=== PATIENT | female | born 1955 | race Caucasian/White ===

== ENCOUNTER 2016-05-10 21:01 | Emergency (ER) | payer OTHER ==
[~2016-05-10] VITALS: Ht 175.3 cm; Wt 88.2 kg
[~2016-05-10 21:01] MED LIST: BENTYL20 MG PO; CLEOCIN300 MG PO; DOXYCYCLINE HY100 M3 PO; FLONASE16 G1 BOTH NARES; GLIPIZIDE XL5 MG PO; GLUCOPHAGE500 MG; GLUCOPHAGE500 MG PO; GLUCOTROL XL5 MG PO; GLUCOTROL5 MG PO; LEVOTHROID100 MCG PO; LEVOTHYROXINE100 MCG PO; LISINOPRIL40 MG PO; MYSOLINE50 MG PO; NEURONTIN300 MG PO; PERCOCET 5/31 TABLET PO; PRILOSEC20 MG PO; PRIMIDONE50 MG PO; PROMETHAZINE HC25 M1 PO; REMERON45 MG PO; SINEMET 25-1001 EACH PO; SINEMET 25-2501 EAC1 PO; TESSALON PERLE100 MG PO; TIROSINT100 MCG PO; TYLENOL WITH C1 EACH PO; ZESTRIL40 MG PO; ZOCOR80 MG PO; ZOFRAN4 MG PO
[2016-05-11 01:23] VITALS: BP 144/72
== END 2016-05-11 01:24 | disposition home or self-care (01) ==
LOC: EME 21:01 → EXP 21:01
DX: S00.12XA Contusion of left eyelid and periocular area, initial encounter (principal); W20.8XXA Other cause of strike by thrown, projected or falling object, initial encounter
CPT/HCPCS: 99281; 99284

== ENCOUNTER 2016-06-13 14:01 | Emergency (ER) | payer OTHER ==
[~2016-06-13] VITALS: Ht 175.3 cm; Wt 88.1 kg
[2016-06-13 14:43] LABS: MCH 28.3 PG (29.0-34.0); MCHC 33.2 G/DL (30.0-36.0); MCV 85.2 FL (83-99); MEAN PLAT.VOLUME 11.2 uM^3 (9.5-12.4); PLATELET COUNT 185 K/uL (156-360); RBC DIS.WIDTH-CV 12.7 % (11.8-14.6); RBC DIS.WIDTH-SD 38.7 % (39-53); RED BLOOD COUNT 4.81 M/uL (3.80-5.20)
[2016-06-13 14:51] LABS: CHLORIDE 107 mEq/L (99-109); POTASSIUM 4.1 mEq/L (3.7-5.4); SODIUM 141 mEq/L (136-147)
[2016-06-13 14:53] LABS: GLUCOSE 162 mg/dL (70-99)
[2016-06-13 14:54] LABS: ANION GAP 11 MEQ/L (2-14)
[2016-06-13 14:55] LABS: TOTAL BILIRUBIN 0.6 mg/dL (0.0-1.0)
[2016-06-13 14:57] LABS: ALKALINE PHOSPHATASE 78 IU/L (3-129); GFR ESTIMATE (CALCULATED) > 59 mL/min/
[2016-06-13 14:58] LABS: UREA NITROGEN (BUN) 22 mg/dL (9-23)
[2016-06-13 15:00] LABS: LIPASE 11 U/L (1.0-51.0)
[2016-06-13 15:41] LABS: ADD MIUA? YES; BILIRUBIN NEGATIVE; BLOOD NEGATIVE; COLOR YELLOW ((YELLOW)); GLUCOSE (STRIP) NEGATIVE; KETONES 5; LEUKOCYTES SMALL; NITRITE NEGATIVE; PROTEIN (STRIP) NEGATIVE; SPECIFIC GRAVITY 1.027 (1.000-1.030); UROBILINOGEN 0.2 MG/DL (0.2-1.0)
[2016-06-13 15:54] LABS: BACTERIA RARE /HPF; EPITHELIAL CELLS RARE /HPF; MUCUS TRACE /LPF; RED BLOOD CELLS 30-40 /HPF (0-5); UCUL ADDED? NO; WHITE BLOOD CELLS 0-5 /HPF (0-5)
[2016-06-13 16:04] LABS: POINT-OF-CARE METER ID UU13113702; POINT-OF-CARE USER ID AHSDISBJH
[2016-06-13] MEDS ORDERED: ZOFRAN4 MG PO (18:30)
[2016-06-13] MEDS ORDERED: MACRODANTIN100 MG PO (18:30)
[2016-06-13 19:48] VITALS: BP 144/80
== END 2016-06-13 19:54 | disposition home or self-care (01) ==
LOC: EME 14:01
PROVIDERS: Emergency Medicine
DX: R11.2 Nausea with vomiting, unspecified (principal); R19.7 Diarrhea, unspecified; R10.9 Unspecified abdominal pain
CPT/HCPCS: 74177; 80053; 81003; 82948; 83605; 83690; 85027; 99281; 99285; J2405; J7030

== ENCOUNTER 2016-11-06 16:02 | Emergency (ER) | payer OTHER ==
[~2016-11-06] VITALS: Ht 170.2 cm; Wt 93.8 kg
[~2016-11-06 16:02] MED LIST changes: +MACRODANTIN100 MG PO
[2016-11-06] MEDS ORDERED: ZANTAC150 MG PO (17:19)
[2016-11-06 17:43] LABS: BASOPHIL COUNT 0.1 K/uL (0-0.1); EOSINOPHIL (%) 1.2 % (0-5); EOSINOPHIL COUNT 0.1 K/uL (0-0.3); HEMATOCRIT 37.4 % (36.0-46.0); IMMATURE GRANULOCYTE (%) 0.3 % (0.0-0.7); INSTRUMENT ABS NEUTROPHIL CT 4.5 K/uL; LYMPHOCYTE COUNT 2.5 K/uL (1.0-2.8); MCH 28.2 PG (29.0-34.0); MCHC 33.2 G/DL (30.0-36.0); MEAN PLAT.VOLUME 11.1 uM^3 (9.5-12.4); MONOCYTE (%) 6.4 % (3-12); MONOCYTE COUNT 0.5 K/uL (0-0.8); NEUTROPHIL (%) 59.1 % (45-76); NEUTROPHIL COUNT 4.5 K/uL (1.8-6.4); PLATELET COUNT 193 K/uL (156-360); RBC DIS.WIDTH-CV 11.9 % (11.8-14.6); RBC DIS.WIDTH-SD 37.1 % (39-53); WHITE BLOOD COUNT 7.6 K/uL (4.1-10.2)
[2016-11-06 17:57] LABS: CHLORIDE 103 mEq/L (99-109); POTASSIUM 4.1 mEq/L (3.7-5.4); SODIUM 137 mEq/L (136-147)
[2016-11-06 17:59] LABS: GLUCOSE 115 mg/dL (70-99)
[2016-11-06 18:00] LABS: ANION GAP 12 MEQ/L (2-14)
[2016-11-06 18:01] LABS: TOTAL BILIRUBIN 0.2 mg/dL (0.0-1.0)
[2016-11-06 18:02] LABS: ALKALINE PHOSPHATASE 71 IU/L (3-129)
[2016-11-06 18:03] LABS: GFR ESTIMATE (CALCULATED) > 59 mL/min/
[2016-11-06 18:04] LABS: UREA NITROGEN (BUN) 18 mg/dL (9-23)
[2016-11-06 18:06] LABS: CREATINE KINASE 97 IU/L (1-294); TOTAL CK 97 IU/L (1-294)
[2016-11-06 18:13] LABS: CK-MB 1.1 ng/mL (0.0-4.9)
[2016-11-06 19:36] LABS: TROP-I INTERPRETATION NEGATIVE; TROPONIN-I < 0.01 ng/mL (0.0-0.30)
[2016-11-06] MEDS ORDERED: NORCO 5/3251 TABLET PO (20:57)
[2016-11-06 21:00] VITALS: BP 105/60
== END 2016-11-06 21:01 | disposition home or self-care (01) ==
LOC: EME 16:02
PROVIDERS: Emergency Medicine
DX: G20 Parkinson's disease (principal); M62.838 Other muscle spasm; K21.9 Gastro-esophageal reflux disease without esophagitis; I10 Essential (primary) hypertension; E78.5 Hyperlipidemia, unspecified; E11.9 Type 2 diabetes mellitus without complications; Z79.84 Long term (current) use of oral hypoglycemic drugs
CPT/HCPCS: 80053; 82550; 82553; 84484; 85025; 93005; 99281; 99284; J2060; J3010

== ENCOUNTER 2017-01-09 18:17 | Emergency (ER) | payer OTHER ==
[~2017-01-09] VITALS: Ht 175.3 cm; Wt 85.5 kg
[~2017-01-09 18:17] MED LIST changes: +NORCO 5/3251 TABLET PO; +ZANTAC150 MG PO
[2017-01-09 18:39] VITALS: BP 127/94
[2017-01-09] MEDS ORDERED: FLEXERIL10 MG PO (19:41)
[2017-01-09] MEDS ORDERED: NAPROSYN500 MG PO (19:41)
== END 2017-01-09 20:05 | disposition home or self-care (01) ==
LOC: EME 18:17
DX: S50.11XA Contusion of right forearm, initial encounter (principal); W01.10XA Fall on same level from slipping, tripping and stumbling with subsequent striking against unspecified object, initial encounter; G20 Parkinson's disease
CPT/HCPCS: 73090; 99281; 99283

== ENCOUNTER 2017-03-27 17:29 | Emergency (ER) | payer OTHER ==
[~2017-03-27] VITALS: Ht 175.3 cm; Wt 76.9 kg
[~2017-03-27 17:29] MED LIST changes: +FLEXERIL10 MG PO; +NAPROSYN500 MG PO
[2017-03-27 18:13] LABS: HEMATOCRIT 37.4 % (36.0-46.0); MCH 29.5 PG (29.0-34.0); MCHC 33.2 G/DL (30.0-36.0); MCV 88.8 FL (83-99); MEAN PLAT.VOLUME 11.1 uM^3 (9.5-12.4); PLATELET COUNT 201 K/uL (156-360); RBC DIS.WIDTH-CV 12.7 % (11.8-14.6); RBC DIS.WIDTH-SD 41.1 % (39-53); RED BLOOD COUNT 4.21 M/uL (3.80-5.20); WHITE BLOOD COUNT 7.1 K/uL (4.1-10.2)
[2017-03-27 18:25] LABS: CHLORIDE 107 mEq/L (99-109); POTASSIUM 3.9 mEq/L (3.7-5.4); SODIUM 140 mEq/L (136-147)
[2017-03-27 18:27] LABS: GLUCOSE 159 mg/dL (70-99)
[2017-03-27 18:29] LABS: ANION GAP 8 MEQ/L (2-14); TOTAL BILIRUBIN 0.1 mg/dL (0.0-1.0)
[2017-03-27 18:31] LABS: ALKALINE PHOSPHATASE 71 IU/L (3-129); GFR ESTIMATE (CALCULATED) > 59 mL/min/
[2017-03-27 18:32] LABS: UREA NITROGEN (BUN) 13 mg/dL (9-23)
[2017-03-27 18:35] LABS: TROP-I INTERPRETATION NEGATIVE; TROPONIN-I < 0.01 ng/mL (0.0-0.30)
[2017-03-27 19:22] LABS: ADD MIUA? YES; BILIRUBIN NEGATIVE; BLOOD NEGATIVE; COLOR YELLOW ((YELLOW)); GLUCOSE (STRIP) NEGATIVE; KETONES 5; LEUKOCYTES SMALL; NITRITE NEGATIVE; PROTEIN (STRIP) 30; SPECIFIC GRAVITY 1.032 (1.000-1.030)
[2017-03-27 19:29] LABS: BACTERIA NONE SEEN /HPF; EPITHELIAL CELLS RARE /HPF; MUCUS 1+ /LPF
[2017-03-27] MEDS ORDERED: TYLENOL WITH C1 EACH PO (20:11)
[2017-03-27 20:36] VITALS: BP 93/65
== END 2017-03-27 20:37 | disposition home or self-care (01) ==
LOC: EME 17:29
PROVIDERS: Physician Assistant Medical
DX: M79.601 Pain in right arm (principal); R52 Pain, unspecified; F41.9 Anxiety disorder, unspecified; G20 Parkinson's disease; E11.9 Type 2 diabetes mellitus without complications; E78.5 Hyperlipidemia, unspecified; I10 Essential (primary) hypertension; K21.9 Gastro-esophageal reflux disease without esophagitis; E03.9 Hypothyroidism, unspecified; Z79.84 Long term (current) use of oral hypoglycemic drugs; Z88.0 Allergy status to penicillin
CPT/HCPCS: 80053; 81003; 84484; 85027; 93005; 99281; 99285; J2060; J2270; J2405

== ENCOUNTER 2017-04-27 17:31 | Emergency (ER) | payer OTHER ==
[~2017-04-27] VITALS: Ht 175.3 cm; Wt 73.6 kg
[2017-04-27 19:00] LABS: HEMATOCRIT 36.5 % (36.0-46.0); HEMOGLOBIN 12.1 G/DL (11.9-15.5); MCH 29.4 PG (29.0-34.0); MCHC 33.2 G/DL (30.0-36.0); MCV 88.6 FL (83-99); PLATELET COUNT 196 K/uL (156-360); RBC DIS.WIDTH-CV 12.6 % (11.8-14.6); RBC DIS.WIDTH-SD 40.3 % (39-53); RED BLOOD COUNT 4.12 M/uL (3.80-5.20); WHITE BLOOD COUNT 7.8 K/uL (4.1-10.2)
[2017-04-27 19:10] LABS: CHLORIDE 108 mEq/L (99-109); SODIUM 143 mEq/L (136-147)
[2017-04-27 19:11] LABS: GLUCOSE 103 mg/dL (70-99)
[2017-04-27 19:15] LABS: CREATININE 0.8 mg/dL (0.6-1.3); GFR ESTIMATE (CALCULATED) > 59 mL/min/
[2017-04-27 19:16] LABS: UREA NITROGEN (BUN) 12 mg/dL (9-23)
[2017-04-27 19:21] LABS: TROP-I INTERPRETATION NEGATIVE; TROPONIN-I < 0.01 ng/mL (0.0-0.30)
[2017-04-27] MEDS ORDERED: PERCOCET 5/31 TABLET PO (20:56)
[2017-04-27 21:35] VITALS: BP 137/89
== END 2017-04-27 21:37 | disposition home or self-care (01) ==
LOC: EME 17:31
PROVIDERS: Emergency Medicine
DX: M25.511 Pain in right shoulder (principal); G89.29 Other chronic pain; G20 Parkinson's disease; E03.9 Hypothyroidism, unspecified; E11.9 Type 2 diabetes mellitus without complications; I10 Essential (primary) hypertension; E78.5 Hyperlipidemia, unspecified; K21.9 Gastro-esophageal reflux disease without esophagitis; F41.9 Anxiety disorder, unspecified; F32.9 Major depressive disorder, single episode, unspecified; Z79.84 Long term (current) use of oral hypoglycemic drugs; Z88.0 Allergy status to penicillin
CPT/HCPCS: 71045; 80048; 84484; 85027; 99281; 99283; J2270

== ENCOUNTER 2017-05-05 23:35 | Emergency (ER) | payer OTHER ==
[~2017-05-05] VITALS: Ht 175.3 cm; Wt 83.2 kg
[2017-05-06] MEDS ORDERED: PERCOCET 5/31 TABLET PO (01:58)
[2017-05-06 02:04] VITALS: BP 130/79
[2017-05-07] MEDS ORDERED: ZOFRAN4 MG PO (04:31)
== END 2017-05-06 02:15 | disposition home or self-care (01) ==
LOC: EME 23:35
DX: M25.511 Pain in right shoulder (principal); G20 Parkinson's disease; Z88.0 Allergy status to penicillin
CPT/HCPCS: 73030; 99281; 99284; J2270; J3010

== ENCOUNTER 2017-05-06 20:37 | Emergency (ER) | payer OTHER ==
[~2017-05-06] VITALS: Ht 175.3 cm; Wt 76.6 kg
[2017-05-07 02:15] LABS: HEMATOCRIT 38.3 % (36.0-46.0); HEMOGLOBIN 12.7 G/DL (11.9-15.5); MCH 29.5 PG (29.0-34.0); MCHC 33.2 G/DL (30.0-36.0); MCV 88.9 FL (83-99); PLATELET COUNT 203 K/uL (156-360); RBC DIS.WIDTH-CV 12.5 % (11.8-14.6); RBC DIS.WIDTH-SD 41.1 % (39-53); RED BLOOD COUNT 4.31 M/uL (3.80-5.20); WHITE BLOOD COUNT 7.7 K/uL (4.1-10.2)
[2017-05-07 02:24] LABS: CHLORIDE 107 mEq/L (99-109); POTASSIUM 4.1 mEq/L (3.7-5.4); SODIUM 142 mEq/L (136-147)
[2017-05-07 02:26] LABS: GLUCOSE 142 mg/dL (70-99)
[2017-05-07 02:30] LABS: CREATININE 0.9 mg/dL (0.6-1.3); GFR ESTIMATE (CALCULATED) > 59 mL/min/
[2017-05-07 02:31] LABS: UREA NITROGEN (BUN) 13 mg/dL (9-23)
[2017-05-07 02:34] LABS: TROP-I INTERPRETATION NEGATIVE; TROPONIN-I < 0.01 ng/mL (0.0-0.30)
[2017-05-07] MEDS ORDERED: ZOFRAN4 MG PO (04:31)
[2017-05-07 05:06] VITALS: BP 141/95
== END 2017-05-07 05:07 | disposition home or self-care (01) ==
LOC: EME 20:37
PROVIDERS: Emergency Medicine
DX: M25.511 Pain in right shoulder (principal); G89.29 Other chronic pain; G20 Parkinson's disease; I10 Essential (primary) hypertension; E11.9 Type 2 diabetes mellitus without complications; E78.5 Hyperlipidemia, unspecified; E03.9 Hypothyroidism, unspecified; K21.9 Gastro-esophageal reflux disease without esophagitis; F41.9 Anxiety disorder, unspecified; F32.9 Major depressive disorder, single episode, unspecified; Z79.84 Long term (current) use of oral hypoglycemic drugs; Z88.0 Allergy status to penicillin
CPT/HCPCS: 80048; 84484; 85027; 93005; 99281; 99284

== ENCOUNTER 2017-05-09 19:32 | Inpatient (IN) | payer OTHER ==
[~2017-05-09] VITALS: Ht 175.3 cm; Wt 84.5 kg
[2017-05-09 21:04] LABS: BASOPHIL (%) 0.5 % (0-1); BASOPHIL COUNT 0.1 K/uL (0-0.1); EOSINOPHIL (%) 0 % (0-5); HEMOGLOBIN 12.8 G/DL (11.9-15.5); IMMATURE GRANULOCYTE (%) 0.4 % (0.0-0.7); LYMPHOCYTE COUNT 2.1 K/uL (1.0-2.8); MCH 29.1 PG (29.0-34.0); MCHC 32.8 G/DL (30.0-36.0); MCV 88.6 FL (83-99); MONOCYTE (%) 6.3 % (3-12); MONOCYTE COUNT 0.7 K/uL (0-0.8); NEUTROPHIL (%) 72.8 % (45-76); NEUTROPHIL COUNT 7.5 K/uL (1.8-6.4); PLATELET COUNT 196 K/uL (156-360); RBC DIS.WIDTH-CV 12.5 % (11.8-14.6); RBC DIS.WIDTH-SD 40.8 % (39-53); WHITE BLOOD COUNT 10.3 K/uL (4.1-10.2)
[2017-05-09 21:18] LABS: ALBUMIN 4.1 g/dL (3.2-4.8); CHLORIDE 108 mEq/L (99-109); POTASSIUM 3.6 mEq/L (3.7-5.4); SODIUM 142 mEq/L (136-147)
[2017-05-09 21:19] LABS: MAGNESIUM 1.7 mg/dL (1.3-2.7)
[2017-05-09 21:21] LABS: GLUCOSE 88 mg/dL (70-99); TOTAL PROTEIN 6.6 g/dL (6.4-8.3)
[2017-05-09 21:22] LABS: TOTAL BILIRUBIN 0.2 mg/dL (0.0-1.0)
[2017-05-09 21:24] LABS: ALKALINE PHOSPHATASE 64 IU/L (3-129); CREATININE 0.7 mg/dL (0.6-1.3); GFR ESTIMATE (CALCULATED) > 59 mL/min/
[2017-05-09 21:25] LABS: UREA NITROGEN (BUN) 16 mg/dL (9-23)
[2017-05-09 21:26] LABS: AST (GOT) 22 IU/L (2-34)
[2017-05-09 21:27] LABS: ALT (GPT) 7 IU/L (3-49)
[2017-05-09 21:28] LABS: TROP-I INTERPRETATION NEGATIVE; TROPONIN-I < 0.01 ng/mL (0.0-0.30)
[2017-05-09 23:08] LABS: APPEARANCE CLEAR ((CLEAR)); BILIRUBIN NEGATIVE; BLOOD NEGATIVE; COLOR YELLOW ((YELLOW)); GLUCOSE (STRIP) NEGATIVE; KETONES 20; LEUKOCYTES TRACE; NITRITE NEGATIVE; PROTEIN (STRIP) 30; SPECIFIC GRAVITY 1.034 (1.000-1.030)
[2017-05-09 23:14] LABS: BACTERIA NONE SEEN /HPF; EPITHELIAL CELLS RARE /HPF; MUCUS 2+ /LPF; RED BLOOD CELLS 0-5 /HPF (0-5); UCUL ADDED? NO; WHITE BLOOD CELLS 0-5 /HPF (0-5)
[2017-05-09 23:16] LABS: AMPHETAMINE NEGATIVE (500 ng/mL); BARBITURATES PRESUMPTIVE POSITIVE (200 ng/mL); BENZODIAZEPINES PRESUMPTIVE POSITIVE (150 ng/mL); COCAINE NEGATIVE (150 ng/mL); METHADONE NEGATIVE (200 ng/mL); METHAMPHETAMINE NEGATIVE (500 ng/mL); OPIATES (MORPHINE) NEGATIVE (100 ng/mL); PHENCYCLIDINE NEGATIVE (25 ng/mL); THC CANNABINOIDS NEGATIVE (50 ng/mL); TRICYCLIC ANTIDEPRESSANTS NEGATIVE (300 ng/mL)
[2017-05-09 23:17] LABS: BUPRENORPHINE NEGATIVE (10 ng/mL); OXYCODONE PRESUMPTIVE POSITIVE (100 ng/mL); PROPOXYPHENE NEGATIVE (300 ng/mL)
[2017-05-09 23:58] LABS: BENZODIAZEPINES, URINE SCREEN Negative (200 ng/mL)
[2017-05-10] MEDS ORDERED: BACLOFEN20 MG PO (00:39)
[2017-05-10] MEDS ORDERED: LORAZEPAM0.5 MG PO (00:39)
[2017-05-10] MEDS ORDERED: MIRTAZAPINE45 MG PO (00:40)
[2017-05-10] MEDS ORDERED: METFORMIN HCL500 MG PO (00:40)
[2017-05-10] MEDS ORDERED: GABAPENTIN300 MG PO (00:42)
[2017-05-10] MEDS ORDERED: CARBIDOPA/LEVO1 EACH PO (00:43)
[2017-05-10] MEDS ORDERED: SIMVASTATIN80 MG PO (00:43)
[2017-05-10] MEDS ORDERED: PRIMIDONE50 MG PO (00:45)
[2017-05-10] MEDS ORDERED: RANITIDINE HCL150 MG PO (00:46)
[2017-05-10] MEDS ORDERED: LORATADINE10 M2 PO (00:46)
[2017-05-10] MEDS ORDERED: OMEPRAZOLE20 MG PO (00:48)
[2017-05-10] MEDS ORDERED: LISINOPRIL40 MG PO (00:48)
[2017-05-10 02:48] VITALS: BP 151/79
[2017-05-10 05:44] VITALS: BP 160/87
[2017-05-10 08:13] VITALS: BP 143/75
[2017-05-10 12:00] VITALS: BP 148/80
[2017-05-10 16:00] VITALS: BP 140/79
[2017-05-10 20:30] VITALS: BP 163/74
[2017-05-11] VITALS (7 sets, daily range): BP systolic 128–169; BP diastolic 67–82
[2017-05-11 06:14] LABS: BASOPHIL (%) 0.8 % (0-1); BASOPHIL COUNT 0.1 K/uL (0-0.1); EOSINOPHIL (%) 0.6 % (0-5); HEMATOCRIT 36.4 % (36.0-46.0); HEMOGLOBIN 11.6 G/DL (11.9-15.5); IMMATURE GRANULOCYTE (%) 0.4 % (0.0-0.7); LYMPHOCYTE (%) 28.4 % (15-42); MCH 28.6 PG (29.0-34.0); MCHC 31.9 G/DL (30.0-36.0); MCV 89.7 FL (83-99); MONOCYTE (%) 6.7 % (3-12); MONOCYTE COUNT 0.5 K/uL (0-0.8); NEUTROPHIL (%) 63.1 % (45-76); NEUTROPHIL COUNT 4.5 K/uL (1.8-6.4); PLATELET COUNT 171 K/uL (156-360); RBC DIS.WIDTH-CV 12.3 % (11.8-14.6); RBC DIS.WIDTH-SD 40.2 % (39-53); RED BLOOD COUNT 4.06 M/uL (3.80-5.20); WHITE BLOOD COUNT 7.2 K/uL (4.1-10.2)
[2017-05-11 06:44] LABS: CHLORIDE 109 MEQ/L (99-109); CREATININE 0.8 MG/DL (0.6-1.3); GFR ESTIMATE (CALCULATED) > 59 mL/min/; SODIUM 146 MEQ/L (136-147); UREA NITROGEN (BUN) 17 mg/dL (9-23)
[2017-05-11 06:52] LABS: GLUCOSE 113 mg/dL (70-99); POTASSIUM 4.5 MEQ/L (3.7-5.4)
[2017-05-12 03:56] VITALS: BP 144/78
[2017-05-12 08:16] VITALS: BP 154/83
[2017-05-12 11:30] VITALS: BP 152/87
[2017-05-12] MEDS ORDERED: MIRTAZAPINE30 MG PO (13:59)
[2017-05-12] MEDS ORDERED: LEVAQUIN750 MG PO (14:02)
[2017-05-12] MEDS ORDERED: ARTANE2 MG PO (14:03)
[2017-05-12] MEDS ORDERED: AVENTYL,PAMELOR10 MG PO (14:04)
[2017-05-12] MEDS ORDERED: MOTRIN600 MG PO (14:05)
== END 2017-05-12 16:40 | disposition home health service (06) | DRG 177 ==
LOC: EME 19:32 → 5SOUTH 23:45 → EDOF 23:45 → ENRESERV 23:46 → 5SOUTH 05-10 02:06
PROVIDERS: Internal Medicine; Physician Assistant Medical
DX: J69.0 Pneumonitis due to inhalation of food and vomit (principal); G92 Toxic encephalopathy; G20 Parkinson's disease; T42.6X5A Adverse effect of other antiepileptic and sedative-hypnotic drugs, initial encounter; T40.605A Adverse effect of unspecified narcotics, initial encounter; Z79.899 Other long term (current) drug therapy; E87.2 Acidosis; I10 Essential (primary) hypertension; E78.5 Hyperlipidemia, unspecified; E03.9 Hypothyroidism, unspecified; F32.9 Major depressive disorder, single episode, unspecified; E11.9 Type 2 diabetes mellitus without complications; K21.9 Gastro-esophageal reflux disease without esophagitis; G89.29 Other chronic pain; E87.6 Hypokalemia; F41.9 Anxiety disorder, unspecified; Z86.73 Personal history of transient ischemic attack (TIA), and cerebral infarction without residual deficits
CPT/HCPCS: 70450; 71045; 73030; 80048; 80053; 81003; 82140; 82948; 83605; 83735; 84484; 84999; 85025; 85027; 87040; 87449; 87502; 92526 GN; 92610 GN; 93005; 94640; 94760; 99202; 99281; 99284; 99285; J0456; J0696; J1650; J1815; J1885; J1956; J2270; J2405; J7030; S0028

== ENCOUNTER 2017-06-29 18:25 | Emergency (ER) | payer OTHER ==
[~2017-06-29] VITALS: Ht 165.1 cm; Wt 80.9 kg
[~2017-06-29 18:25] MED LIST changes: +ARTANE2 MG PO; +AVENTYL,PAMELOR10 MG PO; +BACLOFEN20 MG PO; +CARBIDOPA/LEVO1 EACH PO; +GABAPENTIN300 MG PO; +LEVAQUIN750 MG PO; +LORATADINE10 M2 PO; +LORAZEPAM0.5 MG PO; +METFORMIN HCL500 MG PO; +MIRTAZAPINE30 MG PO; +MIRTAZAPINE45 MG PO; +MOTRIN600 MG PO; +OMEPRAZOLE20 MG PO; +RANITIDINE HCL150 MG PO; +SIMVASTATIN80 MG PO
[2017-06-29 18:53] LABS: HEMATOCRIT 33.8 % (36.0-46.0); HEMOGLOBIN 11.5 G/DL (11.9-15.5); MCH 29.1 PG (29.0-34.0); MCV 85.6 FL (83-99); PLATELET COUNT 203 K/uL (156-360); RBC DIS.WIDTH-SD 37.2 % (39-53); RED BLOOD COUNT 3.95 M/uL (3.80-5.20)
[2017-06-29 19:05] LABS: CHLORIDE 107 mEq/L (99-109); SODIUM 144 mEq/L (136-147)
[2017-06-29 19:08] LABS: GLUCOSE 160 mg/dL (70-99); TOTAL PROTEIN 6.5 g/dL (6.4-8.3)
[2017-06-29 19:10] LABS: TOTAL BILIRUBIN 0.4 mg/dL (0.0-1.0)
[2017-06-29 19:11] LABS: ALKALINE PHOSPHATASE 68 IU/L (3-129); CREATININE 0.8 mg/dL (0.6-1.3); GFR ESTIMATE (CALCULATED) > 59 mL/min/
[2017-06-29 19:12] LABS: UREA NITROGEN (BUN) 14 mg/dL (9-23)
[2017-06-29 19:13] LABS: AST (GOT) 34 IU/L (2-34)
[2017-06-29 19:14] LABS: ALT (GPT) 22 IU/L (3-49)
[2017-06-29 19:34] LABS: APPEARANCE CLEAR ((CLEAR)); BILIRUBIN NEGATIVE; BLOOD NEGATIVE; COLOR YELLOW ((YELLOW)); GLUCOSE (STRIP) NEGATIVE; KETONES 5; LEUKOCYTES NEGATIVE; NITRITE NEGATIVE; PROTEIN (STRIP) 30; SPECIFIC GRAVITY 1.026 (1.000-1.030); UCUL ADDED? NO; UROBILINOGEN 0.2 MG/DL (0.2-1.0)
[2017-06-29 20:24] VITALS: BP 159/88
== END 2017-06-29 20:33 | disposition home or self-care (01) ==
LOC: EME 18:25
DX: R10.30 Lower abdominal pain, unspecified (principal); I10 Essential (primary) hypertension; E87.6 Hypokalemia; K57.30 Diverticulosis of large intestine without perforation or abscess without bleeding; I25.10 Atherosclerotic heart disease of native coronary artery without angina pectoris; E11.9 Type 2 diabetes mellitus without complications; Z79.84 Long term (current) use of oral hypoglycemic drugs; E78.5 Hyperlipidemia, unspecified; K21.9 Gastro-esophageal reflux disease without esophagitis; E03.9 Hypothyroidism, unspecified; G20 Parkinson's disease; F32.9 Major depressive disorder, single episode, unspecified; F41.9 Anxiety disorder, unspecified; Z86.73 Personal history of transient ischemic attack (TIA), and cerebral infarction without residual deficits; Z88.0 Allergy status to penicillin
CPT/HCPCS: 74176; 80053; 81003; 85027; 99281; 99284

== ENCOUNTER 2017-11-05 20:33 | Emergency (ER) | payer OTHER ==
[~2017-11-05] VITALS: Ht 175.3 cm; Wt 78.0 kg
[2017-11-05 21:29] LABS: HEMATOCRIT 37.3 % (36.0-46.0); HEMOGLOBIN 12.6 G/DL (11.9-15.5); MCH 29.2 PG (29.0-34.0); MCHC 33.8 G/DL (30.0-36.0); MCV 86.3 FL (83-99); PLATELET COUNT 201 K/uL (156-360); RBC DIS.WIDTH-CV 12.6 % (11.8-14.6); RBC DIS.WIDTH-SD 39.9 % (39-53); RED BLOOD COUNT 4.32 M/uL (3.80-5.20); WHITE BLOOD COUNT 12.5 K/uL (4.1-10.2)
[2017-11-05 21:40] LABS: ALBUMIN 4.4 g/dL (3.2-4.8); CHLORIDE 106 mEq/L (99-109); POTASSIUM 3.8 mEq/L (3.7-5.4); SODIUM 145 mEq/L (136-147)
[2017-11-05 21:43] LABS: GLUCOSE 102 mg/dL (70-99); TOTAL PROTEIN 6.7 g/dL (6.4-8.3)
[2017-11-05 21:44] LABS: TOTAL BILIRUBIN 0.4 mg/dL (0.0-1.0)
[2017-11-05 21:46] LABS: ALKALINE PHOSPHATASE 88 IU/L (3-129); CREATININE 0.8 mg/dL (0.6-1.3); GFR ESTIMATE (CALCULATED) > 59 mL/min/
[2017-11-05 21:47] LABS: UREA NITROGEN (BUN) 17 mg/dL (9-23)
[2017-11-05 21:48] LABS: AST (GOT) 20 IU/L (2-34); DIRECT BILIRUBIN 0.2 mg/dL (0.0-0.3)
[2017-11-05 21:49] LABS: ALT (GPT) 3 IU/L (3-49)
[2017-11-05 21:50] LABS: LIPASE 13 U/L (1.0-51.0)
[2017-11-05 21:58] LABS: TROP-I INTERPRETATION NEGATIVE; TROPONIN-I < 0.01 ng/mL (0.0-0.30)
[2017-11-06] MEDS ORDERED: ZOFRAN4 MG PO (01:18)
[2017-11-06] MEDS ORDERED: BENTYL20 MG PO (01:18)
[2017-11-06 02:13] LABS: APPEARANCE SL.HAZY ((CLEAR)); BILIRUBIN NEGATIVE; BLOOD NEGATIVE; COLOR YELLOW ((YELLOW)); GLUCOSE (STRIP) NEGATIVE; KETONES 5; LEUKOCYTES NEGATIVE; NITRITE NEGATIVE; PROTEIN (STRIP) 30; SPECIFIC GRAVITY 1.024 (1.000-1.030); UROBILINOGEN 0.2 MG/DL (0.2-1.0)
[2017-11-06 02:15] LABS: TROP-I INTERPRETATION NEGATIVE; TROPONIN-I < 0.01 ng/mL (0.0-0.30)
[2017-11-06 02:25] LABS: BACTERIA NONE SEEN /HPF; EPITHELIAL CELLS RARE /HPF; MUCUS TRACE /LPF; RED BLOOD CELLS 0-5 /HPF (0-5); UCUL ADDED? NO; WHITE BLOOD CELLS 0-5 /HPF (0-5)
[2017-11-06 03:19] VITALS: BP 122/78
== END 2017-11-06 03:22 | disposition home or self-care (01) ==
LOC: EME 20:33
PROVIDERS: Emergency Medicine
DX: K29.00 Acute gastritis without bleeding (principal); R07.89 Other chest pain; G20 Parkinson's disease; E78.5 Hyperlipidemia, unspecified; E03.9 Hypothyroidism, unspecified; I10 Essential (primary) hypertension; K21.9 Gastro-esophageal reflux disease without esophagitis; E11.9 Type 2 diabetes mellitus without complications; F32.9 Major depressive disorder, single episode, unspecified; F41.9 Anxiety disorder, unspecified; Z86.73 Personal history of transient ischemic attack (TIA), and cerebral infarction without residual deficits; Z79.84 Long term (current) use of oral hypoglycemic drugs; Z88.0 Allergy status to penicillin
CPT/HCPCS: 71046; 74177; 80048; 80076; 81003; 83690; 84484; 85027; 93005; 99281; 99285; J2405; J7030